=== PATIENT | female | born 1985 | race Caucasian/White ===

== ENCOUNTER → 2018-08-18 | Outpatient (CLI) | payer OTHER ==
--- NOTE | 2018-08-18 15:48 | RAD ---
DATE: 08/18/2018 EXAM: DIGITAL DIAGNOSTIC BILATERAL, BREAST RIGHT HISTORY: Right breast lump COMPARISON: None available This study was interpreted with the benefit of Computerized Aided Detection (CAD). Breast Density: HETERO The breast parenchyma is heterogenously dense, which could reduce sensitivity of mammography. Breast parenchyma level C. FINDINGS: A BB was placed over the area of reported palpable concern at 3:00 location. No breast mass is seen. No suspicious microcalcifications are evident. Right breast ultrasound, 08/18/2018: A targeted ultrasound exam was performed of the area of palpable concern. There appears to be a smooth oval-shaped nodule measuring 12 x 7 x 9 mm located approximately 5 cm from the nipple, which corresponds to the area of palpable concern. It is relatively isoechoic relative to the adjacent fat lobules and somewhat difficult to distinguish from the adjacent breast tissues. On the radial images it is wider than tall. No internal color flow is seen. There is no posterior acoustic enhancement or shadowing. A fibroadenoma is suspected, versus a prominent fat lobule producing a pseudolesion. No other abnormality is seen in this region of the right breast. IMPRESSION: 1. No mammographic abnormality is detected. 2. Probably benign sonographic correlate as described above. Clinical surveillance and sonographic follow-up in 4-6 months is suggested. BI-RADS CATEGORY: 3 PROBABLY BENIGN FINDING(S)-SHORT INTERVAL FOLLOW-UP SUGGESTED RECOMMENDED FOLLOW-UP: 6M 6 MONTH FOLLOW-UP PQRS compliance statement: Patient information was entered into a reminder system with a target due date for the next mammogram. Mammography is a sensitive method for finding small breast cancers, but it does not detect them all and is not a substitute for careful clinical examination. A negative mammogram does not negate a clinically suspicious finding and should not result in delay in biopsying a clinically suspicious abnormality. "Our facility is accredited by the [employer] Mammography Program."
== END | disposition home or self-care (01) ==
LOC: MAMMO 13:49
PROVIDERS: ATTEND Obstetrics & Gynecology
DX: R92.8 Other abnormal and inconclusive findings on diagnostic imaging of breast (principal)
CPT/HCPCS: 76641; 77066

== ENCOUNTER 2018-09-06 18:56 | Emergency (ER) | payer OTHER ==
[~2018-09-06] VITALS: Ht 167.6 cm; Wt 74.8 kg
[2018-09-06 19:15] VITALS: BP 134/101
[2018-09-06] MEDS ORDERED: PRED50TA PO (19:22)
--- NOTE | 2018-09-06 19:25 | ED.ADGEN ---
Adult General Chief Complaint Chief Complaint cough HPI HPI 33 years old female who was seen and evaluated this morning for bronchitis placed on Z-Yassine, albuterol presented to the emergency department for cough no acute symptoms no shortness of breath no chest pain Review of Systems Review of Systems Constitutional: Denies fever or chills [] Eyes: Denies change in visual acuity, redness, or eye pain [] HENT: Denies nasal congestion or sore throat [] Respiratory: Denies shortness of breath [] Cardiovascular: No additional information not addressed in HPI [] GI: Denies abdominal pain, nausea, vomiting, bloody stools or diarrhea [] : Denies dysuria or hematuria [] Musculoskeletal: Denies back pain or joint pain [] Integument: Denies rash or skin lesions [] Neurologic: Denies headache, focal weakness or sensory changes [] Endocrine: Denies polyuria or polydipsia [] All other systems were reviewed and found to be within normal limits, except as documented in this note. Physical Exam Physical Exam Constitutional: Well developed, well nourished, no acute distress, non-toxic appearance. [] HENT: Normocephalic, atraumatic, bilateral external ears normal, oropharynx moist, no oral exudates, nose normal. [] Eyes: PERRLA, EOMI, conjunctiva normal, no discharge. [] Neck: Normal range of motion, no tenderness, supple, no stridor. [] Cardiovascular:Heart rate regular rhythm, no murmur [] Lungs & Thorax: Bilateral breath sounds clear to auscultation [] Abdomen: Bowel sounds normal, soft, no tenderness, no masses, no pulsatile masses. [] Skin: Warm, dry, no erythema, no rash. [] Back: No tenderness, no CVA tenderness. [] Extremities: No tenderness, no cyanosis, no clubbing, ROM intact, no edema. [] Neurologic: Alert and oriented X 3, normal motor function, normal sensory function, no focal deficits noted. [] Psychologic: Affect normal, judgement normal, mood normal. [] EKG EKG [] Radiology/Procedures Radiology/Procedures [] Course & Med Decision Making Course & Med Decision Making Pertinent Labs and Imaging studies reviewed. (See chart for details) [] Final Impression Final Impression [] Problems: (1) Bronchitis Dragon Disclaimer Dragon Disclaimer This electronic medical record was generated, in whole or in part, using a voice recognition dictation system. NICOLA ZAMARRIPA MD Sep 06, 2018 19:25
== END 2018-09-06 19:27 | disposition home or self-care (01) ==
LOC: ER 18:56
DX: J40 Bronchitis, not specified as acute or chronic (principal)
CPT/HCPCS: 99283